=== PATIENT | female | born 1995 | race Caucasian/White ===

== ENCOUNTER 2023-01-04 19:10 | Inpatient (IN) | payer OTHER ==
[2023-01-04 20:27] LABS: BASO % 0.8 % (0-2.0); EOS % 0.6 % (0-4.5); HEMOGLOBIN 10.7 GM/dL (10.7-15.3); LYMPH % 34.3 % (8-40); MCH 29.5 pg (25.7-33.7); MCHC 33.4 g/dl (32.0-36.0); MEAN CELL VOLUME 88.3 fl (80-96); MEAN PLT VOLUME 8.8 fl (7.5-11.1); MONO % 6.4 % (3.8-10.2); NEUT % 57.9 % (42.8-82.8); PLATELET COUNT 142 10^3/uL (134-434); RBC 3.62 M/mm3 (3.60-5.2); RDW 15.4 % (11.6-15.6); WHITE BLOOD COUNT 11.4 K/mm3 (4.0-10.0)
[2023-01-04 20:35] LABS: INR 0.97 (0.83-1.09); PROTHROMBIN TIME (PATIENT) 11.2 SEC (9.7-13.0)
[2023-01-04 20:37] LABS: ACTIVATED PTT 26.3 SECONDS (25.2-36.5)
[2023-01-04 20:51] LABS: CALCIUM 8.5 mg/dL (8.5-10.1)
[2023-01-04 20:53] LABS: BLOOD UREA NITROGEN 9.3 mg/dL (7-18)
[2023-01-04 20:55] LABS: CREATININE 0.8 mg/dL (0.55-1.3)
[2023-01-04 21:04] VITALS: BMI 28.0
[2023-01-04] MEDS ORDERED: morphine SULFATE (PF) 1 MG/2 ML SYRINGE ONE (21:29)
[2023-01-04] MEDS ORDERED: FENTANYL CITRATE/PF 50 MCG/ML VIAL ONE (21:29)
[2023-01-04] MEDS ORDERED: PROPOFOL 20 ML ONE (21:30)
[2023-01-04 21:38] LABS: HIV INTERPRETATION NEGATIVE (NEGATIVE)
[2023-01-04] MEDS ORDERED: ONDANSETRON 4 MG/2 ML VIAL IVPUSH PRN (23:25)
[2023-01-04] MEDS ORDERED: morphine SULFATE/PF 1 MG/2 ML (2cc Syringe - QUVA) EP ONE (23:25)
[2023-01-04] MEDS: OXYTOCIN 20 UNITS in 0.9% NS 20 UNIT/1,000 ML INFUS.BAG IV SCH (23:30)
[2023-01-04] MEDS ORDERED: CITRIC ACID/SODIUM CITRATE 30 ML UNIT-DOSE CUP PO ONE (23:43)
[2023-01-04] MEDS ORDERED: ELECTROLYTE-148 SOLN 500 ML IV ONE (23:43)
[2023-01-04] MEDS ORDERED: OXYTOCIN 20 UNITS in 0.9% NS 20 UNIT/1,000 ML INFUS.BAG IV ONE (23:50)
[2023-01-04] MEDS ORDERED: SENNOSIDES/DOCUSATE COMBO (SENNA PLUS) TABLET (UD) PO PRN (23:57)
[2023-01-04] MEDS ORDERED: METHYLERGONOVINE MALEATE 0.2 MG/1 ML AMP IM PRN (23:57)
[2023-01-05] MEDS: IBUPROFEN 800 MG/8 ML IJ IVPB PRN ×2 (05:05→12:07)
[2023-01-05] MEDS: OXYTOCIN 20 UNITS in 0.9% NS 20 UNIT/1,000 ML INFUS.BAG IV SCH (08:08)
[2023-01-05 08:19] LABS: BASO % 0.3 % (0-2.0); EOS % 0.1 % (0-4.5); HEMATOCRIT 25.4 % (32.4-45.2); HEMOGLOBIN 8.7 GM/dL (10.7-15.3); LYMPH % 19.1 % (8-40); MCH 29.8 pg (25.7-33.7); MCHC 34.3 g/dl (32.0-36.0); MEAN CELL VOLUME 86.9 fl (80-96); MEAN PLT VOLUME 8.7 fl (7.5-11.1); MONO % 3.9 % (3.8-10.2); NEUT % 76.6 % (42.8-82.8); PLATELET COUNT 110 10^3/uL (134-434); RBC 2.92 M/mm3 (3.60-5.2); RDW 14.8 % (11.6-15.6); WHITE BLOOD COUNT 18.9 K/mm3 (4.0-10.0)
[2023-01-05] MEDS: PRENATAL VITAMINS W/ FOLIC ACID TABLET (FP) PO SCH (09:31)
[2023-01-05] MEDS: FERROUS SO4 325 MG TABLET (FP) PO SCH ×2 (09:31→22:36)
[2023-01-05] MEDS ORDERED: oxyCODONE HCL 5 MG TABLET PO PRN ×2 (11:57)
[2023-01-05] MEDS: ACETAMINOPHEN 325 MG TABLET (FP) PO PRN (18:56)
[2023-01-05] MEDS: SIMETHICONE 80 MG TAB.CHEW (FP) PO PRN (18:57)
[2023-01-05] MEDS ORDERED: BISACODYL 10 MG SUPP.RECT RC PRN (23:57)
[2023-01-06] MEDS: SIMETHICONE 80 MG TAB.CHEW (FP) PO PRN ×3 (01:39→20:37)
[2023-01-06] MEDS: ELECTROLYTE-148 SOLN 1,000 ML IV SCH ×2 (01:42→01:43)
[2023-01-06] MEDS: OXYTOCIN 20 UNITS in 0.9% NS 20 UNIT/1,000 ML INFUS.BAG IV SCH (01:43)
[2023-01-06] MEDS: IBUPROFEN 600 MG TABLET (FP) PO PRN ×2 (06:50→20:37)
[2023-01-06] MEDS ORDERED: ACETAMINOPHEN 1000 MG/100 ML BAG IVPB ONE (07:08)
[2023-01-06] MEDS ORDERED: ACETAMINOPHEN INJECTION 100 ML IVPB ONE (07:11)
[2023-01-06 08:13] LABS: HEMATOCRIT 29.3 % (32.4-45.2); HEMOGLOBIN 9.9 GM/dL (10.7-15.3); MCH 29.1 pg (25.7-33.7); MCHC 33.6 g/dl (32.0-36.0); MEAN CELL VOLUME 86.6 fl (80-96); MEAN PLT VOLUME 8.7 fl (7.5-11.1); PLATELET COUNT 172 10^3/uL (134-434); RBC 3.39 M/mm3 (3.60-5.2); RDW 14.8 % (11.6-15.6); WHITE BLOOD COUNT 20.4 K/mm3 (4.0-10.0)
[2023-01-06 08:20] LABS: INR 1.02 (0.83-1.09); PROTHROMBIN TIME (PATIENT) 11.8 SEC (9.7-13.0)
[2023-01-06 08:22] LABS: ACTIVATED PTT 26.8 SECONDS (25.2-36.5)
[2023-01-06 08:35] LABS: ALBUMIN 2.5 g/dl (3.4-5.0); CALCIUM 8.2 mg/dL (8.5-10.1)
[2023-01-06 08:37] LABS: CREATININE 0.9 mg/dL (0.55-1.3)
[2023-01-06 08:40] LABS: TOT PROT 6.3 g/dl (6.4-8.2)
[2023-01-06 08:45] LABS: BILIRUBIN,TOTAL 1.1 mg/dL (0.2-1)
[2023-01-06] MEDS: PRENATAL VITAMINS W/ FOLIC ACID TABLET (FP) PO SCH (09:17)
[2023-01-06] MEDS: FERROUS SO4 325 MG TABLET (FP) PO SCH ×2 (09:17→21:00)
[2023-01-06 12:15] LABS: ANISOCYTOSIS 2+; MACROCYTOSIS 0; TARGET CELLS 1+
[2023-01-06 12:45] LABS: PROTHROMBIN TIME (PATIENT) 11.6 SEC (9.7-13.0)
[2023-01-06 12:48] LABS: ACTIVATED PTT 25.7 SECONDS (25.2-36.5)
[2023-01-06] MEDS: ACETAMINOPHEN 325 MG TABLET (FP) PO PRN (18:35)
[2023-01-07] MEDS: SIMETHICONE 80 MG TAB.CHEW (FP) PO PRN ×2 (05:23→21:04)
[2023-01-07] MEDS: IBUPROFEN 600 MG TABLET (FP) PO PRN (05:23)
[2023-01-07] MEDS: FERROUS SO4 325 MG TABLET (FP) PO SCH ×2 (10:15→21:04)
[2023-01-07] MEDS: PRENATAL VITAMINS W/ FOLIC ACID TABLET (FP) PO SCH (10:15)
[2023-01-07 12:21] LABS: EPI CELLS 26 /uL (0-25.1); HYALINE CASTS 0 /uL (0-3.1); URINE APPEARANCE CLEAR; URINE BACTERIA 90 /uL (0-1359); URINE BILIRUBIN NEGATIVE (NEGATIVE); URINE COLOR YELLOW; URINE GLUCOSE (UA) NEGATIVE (NEGATIVE); URINE KETONE NEGATIVE (NEGATIVE); URINE LEUK ESTERASE TRACE (NEGATIVE); URINE NITRITE NEGATIVE (NEGATIVE); URINE PROTEIN NEGATIVE (NEGATIVE); URINE RBC 68 /uL (0-23.9); URINE WBC 12 /uL (0-25.8)
[2023-01-07] MEDS: PIPERACILLIN/TAZOB 3.375 GM 3.375 GM in DEXTROSE 5%-WATER - 50 ML IVPB SCH ×2 (14:22→18:13)
[2023-01-07] MEDS ORDERED: VANCOMYCIN 1,000 MG in DEXTROSE 5%-WATER - 250 ML IVPB SCH (15:00)
[2023-01-07] MEDS: VANCOMYCIN/WATER FOR INJ (PEG) 1,000 MG/200 ML BAG IVPB SCH (15:29)
[2023-01-08] MEDS: PIPERACILLIN/TAZOB 3.375 GM 3.375 GM in DEXTROSE 5%-WATER - 50 ML IVPB SCH ×3 (02:25→17:54)
[2023-01-08] MEDS: VANCOMYCIN/WATER FOR INJ (PEG) 1,000 MG/200 ML BAG IVPB SCH ×2 (03:18→15:15)
[2023-01-08 07:43] LABS: HEMATOCRIT 29.7 % (32.4-45.2); HEMOGLOBIN 9.9 GM/dL (10.7-15.3); MCH 28.8 pg (25.7-33.7); MCHC 33.3 g/dl (32.0-36.0); MEAN CELL VOLUME 86.5 fl (80-96); MEAN PLT VOLUME 8.1 fl (7.5-11.1); PLATELET COUNT 365 10^3/uL (134-434); RBC 3.43 M/mm3 (3.60-5.2); RDW 15.3 % (11.6-15.6); WHITE BLOOD COUNT 16.5 K/mm3 (4.0-10.0)
[2023-01-08] MEDS: FERROUS SO4 325 MG TABLET (FP) PO SCH ×2 (10:58→21:06)
[2023-01-08] MEDS: PRENATAL VITAMINS W/ FOLIC ACID TABLET (FP) PO SCH (10:58)
[2023-01-08] MEDS: IBUPROFEN 600 MG TABLET (FP) PO PRN (23:21)
[2023-01-09] MEDS: PIPERACILLIN/TAZOB 3.375 GM 3.375 GM in DEXTROSE 5%-WATER - 50 ML IVPB SCH ×2 (01:00→10:10)
[2023-01-09] MEDS: VANCOMYCIN/WATER FOR INJ (PEG) 1,000 MG/200 ML BAG IVPB SCH (02:17)
[2023-01-09 09:43] LABS: CALCIUM 8.8 mg/dL (8.5-10.1)
[2023-01-09 09:46] LABS: CREATININE 0.8 mg/dL (0.55-1.3); HEMATOCRIT 29.3 % (32.4-45.2); HEMOGLOBIN 9.9 GM/dL (10.7-15.3); MCH 29.5 pg (25.7-33.7); MCHC 33.8 g/dl (32.0-36.0); MEAN CELL VOLUME 87.4 fl (80-96); MEAN PLT VOLUME 7.7 fl (7.5-11.1); PLATELET COUNT 402 10^3/uL (134-434); RBC 3.35 M/mm3 (3.60-5.2); RDW 15.5 % (11.6-15.6); WHITE BLOOD COUNT 13.7 K/mm3 (4.0-10.0)
[2023-01-09] MEDS: FERROUS SO4 325 MG TABLET (FP) PO SCH (10:10)
[2023-01-09] MEDS: PRENATAL VITAMINS W/ FOLIC ACID TABLET (FP) PO SCH (10:10)
[2023-01-09 11:05] VITALS: BP 129/83; PULSE 82; RESP 18; TEMP 98
[2023-01-09 11:16] LABS: ANISOCYTOSIS 0; HELMET CELLS 0; HOWELL-JOLLY BODIES 0; MACROCYTOSIS 0; OVALOCYTE 0; ROULEAU 0; SICKELED CELLS 0; TARGET CELLS 0; TEAR DROP CELLS 0; TOXIC GRANULATION 0
== END 2023-01-09 15:50 | disposition home or self-care (01) | DRG 540 ==
LOC: JLDR 19:10 → J3W 01-05 01:29
PROVIDERS: ADMIT Obstetrics & Gynecology; ATTEND Obstetrics & Gynecology
PROC: 10D00Z1 Extraction of Products of Conception, Low, Open Approach (ICD-10-PCS; principal; 2023-01-04)
PROC: 0UL70ZZ Occlusion of Bilateral Fallopian Tubes, Open Approach (ICD-10-PCS; 2023-01-04)
DX: O34.211 Maternal care for low transverse scar from previous cesarean delivery (principal); O71.1 Rupture of uterus during labor; O99.53 Diseases of the respiratory system complicating the puerperium; J18.9 Pneumonia, unspecified organism; D72.829 Elevated white blood cell count, unspecified; O76 Abnormality in fetal heart rate and rhythm complicating labor and delivery; R07.81 Pleurodynia; R00.0 Tachycardia, unspecified; R91.8 Other nonspecific abnormal finding of lung field; Z3A.38 38 weeks gestation of pregnancy; Z37.0 Single live birth; Z30.2 Encounter for sterilization
CPT/HCPCS: 36415; 71275-TC; 80048; 80053; 81003; 83010; 83615; 84450; 84460; 84484; 85025; 85027; 85379; 85384; 85610; 85730; 86780; 86850; 86900; 86901; 87040; 87086; 87186; 87389; 88302-TC; 88307-TC; 93005; 93010; 94010; C9803-CS; U0003; U0005